=== PATIENT | female | born 1960 | race Caucasian/White ===

== ENCOUNTER 2020-06-09 17:34 | Observation (INO) | payer BC ==
--- NOTE | 2020-06-09 17:37 | EDM.PDOC ---
ED HPI GENERAL MEDICAL PROBLEM - General Chief Complaint: Neurological Problem Stated Complaint: ALTERED MENTAL STATUS Time Seen by Provider: 06/09/20 17:37 Source of Information: Reports: Patient, Family History Limitations: Reports: Altered Mental Status - History of Present Illness INITIAL COMMENTS - FREE TEXT/NARRATIVE: Ashanti, 60-year-old female, presents here with her for pedis with no physical deficit. Her provides history as roughly 1700 hrs. she experienced a significant loss of memory/recall. No trauma nor substance involvement is acknowledged. They had attended a wedding for a nephew in [facility] last evening spending the night, returning home today. At the time of onset they were moving vehicle into the garage when she asked where their vehicle was, as she did not remember/recognize they had obtained a new vehicle of similar size and brand roughly 2 weeks ago. She has no recall of yesterday's events. She had no recall of her current medications, but she was aware of an allergy to penicillin although unsure of what occurred stating it was something childhood. She had a negative COVID-19 test last week per review of [facility] record. There is been no recent illness or concerns, spent the majority of the time traveling from [place] back home to [place] reading a book with no complaints. She denies any change in vision, hearing, taste nor smell. She denies headache, denies numbness nor tingling to her head face or extremities. She has clear speech with no deficit. Totally benign occurrence other than the acute onset of memory loss, both short- term and some long-term factors. Onset: Today, Sudden Duration: Minutes: - Related Data Allergies Allergy/AdvReac Type Severity Reaction Status Date / Time Penicillins Allergy Cannot Verified 06/09/20 17:46 Remember Home Meds: Home Meds atorvaSTATin Calcium [Atorvastatin Calcium] 40 mg PO DAILY 06/09/20 [History] Past Medical History HEENT History: Reports: Impaired Vision (Uses contact lenses) Cardiovascular History: Reports: Hypertension Social & Family History - Family History Family Medical History: Noncontributory - Tobacco Use Tobacco Use Status *Q: Never Tobacco User Tobacco Use Within Last Twelve Months: No - Caffeine Use Caffeine Use: Reports: Soda. Denies: Energy Drinks - Alcohol Use Alcohol Use History: Yes Alcohol Use Frequency: Socially - Recreational Drug Use Recreational Drug Use: No Drug Use in Last 12 Months: No - Living Situation & Occupation Living situation: Reports: , with Spouse Occupation: Employed ED ROS GENERAL - Review of Systems Review Of Systems: Comprehensive ROS is negative, except as noted in HPI. ED EXAM, GENERAL - Physical Exam Exam: See Below Free Text/Narrative:: Alert 60-year-old female with some poor recall to both short-term and long-term memory. HEENT is negative discharge or deformity, there is no evidence of trauma. Auditory canals and tympanic membranes are intact. PERRLA no icterus, no injection, nondilated funduscopy reveals no nicking no scarring. Visual freire are intact with extraocular motion intact. Nilan Barany testing negative for any nystagmus. Facial symmetry is noted, she is able to speak with no difficulty and is able to maintain secretions and her airway. She is able to forcefully close her eyes open her eyes make facial expressions with no deficit. Thorax is clear throughout with no wheezes, no crackles. She is able to distinguish soft touch with cotton swab, pressure, as well as pinprick sensation to the face. Cardiac is S1-S2 with no noted murmur. Paper Folder strength is strong and symmetrical. She has no deficits nor drift to extension or motion. Finger to her nose to my finger is intact. Abdomen is soft bowel sounds are present there is no hepatosplenomegaly, no flank tenderness to percussion. Pelvic negative for tenderness to pressure of the girdle. Lower extremities are benign for any form of injury. No drift is noted. Heel martins is intact. Short-term/antrograde memory is absent with no other focal deficit in physical examination. Long-term/retrograde memory is impaired with no other focal deficit in physical examination. General Appearance: Alert, WD/WN, No Apparent Distress #1 Interpretation EKG Date: 06/09/20 Time: 18:24 Rhythm: NSR [place]: Normal P-Wave: Present QRS: Normal ST-T: Normal QT: Normal Comparison: NA - No Prior EKG Course - Vital Signs Last Recorded V/S: Last Vital Signs Temp 37.1 C 06/09/20 19:56 Pulse 105 H 06/09/20 19:56 Resp 20 06/09/20 19:56 BP 191/108 H 06/09/20 19:56 Pulse Ox 96 06/09/20 19:56 - Orders/Labs/Meds Orders: Active Orders 24 hr Category Date Time Status Blood Glucose Check, Bedside [RC] ONETIME Care 06/09/20 18:01 Active EKG Documentation Completion [RC] ASDIRECTED Care 06/09/20 17:58 Active CORONAVIRUS COVID-19 RAPID [MOLEC] Routine Lab 06/09/20 19:50 Received CORONAVIRUS COVID-19 RAPID [MOLEC] Stat Lab 06/09/20 20:07 Ordered CULTURE URINE [RM] Stat Lab 06/09/20 17:58 Received EKG 12 Lead [EK] Urgent Ther 06/09/20 17:58 Ordered Labs: Laboratory Tests 06/09/20 06/09/20 06/09/20 Range/Units 17:58 17:58 18:25 WBC (5.00-10.00) 10^3/uL RBC (3.80-5.50) 10^6/uL Hgb (12.0-16.0) g/dL Hct (37.0-47.0) % MCV (82.0-92.0) fL MCH (27.0-31.0) pg MCHC (32.0-36.0) g/dL RDW (11.5-14.5) % Plt Count (150-400) 10^3/uL MPV (7.4-10.4) fL Immature Gran % (Auto) (0.0-5.0) % Neut % (Auto) (50.0-70.0) % Lymph % (Auto) (20.0-40.0) % Ogle % (Auto) (2.0-8.0) % Eos % (Auto) (1.0-3.0) % Baso % (Auto) (0.0-1.0) % Neut # (Auto) (2.50-7.00) 10^3/uL Lymph # (Auto) (1.00-4.00) 10^3/uL Ogle # (Auto) (0.10-0.80) 10^3/uL Eos # (Auto) (0.10-0.30) 10^3/uL Baso # (Auto) (0.00-0.10) 10^3/uL Immature Gran # (Auto) (0.00-0.50) 10^3/uL PT 9.0 L (9.2-11.2) SEC INR 0.9 (0.9-1.1) APTT (22.8-31.4) SEC Sodium (136-145) mmol/L Potassium (3.3-5.3) mmol/L Chloride (98-115) mmol/L Carbon Dioxide (21.0-32.0) mmol/L Anion Gap (5-15) mmol/L BUN (6-25) mg/dL Creatinine (0.51-1.17) mg/dL Est Cr Clr Drug Dosing mL/min Estimated GFR (MDRD) mL/min Glucose (75 - 99) mg/dL Calcium (8.7-10.3) mg/dL Total Bilirubin (0.2-1.0) mg/dL AST (15-37) U/L ALT (12-78) U/L Alkaline Phosphatase (46-116) IU/L Creatine Kinase (26-276) U/L CK-MB (CK-2) (0.00-4.30) ng/mL Troponin I (0.00-0.070) ng/mL Total Protein (6.4-8.2) g/dL Albumin (3.00-4.80) g/dL Specimen Type Urincc Urine Color Light yellow (YELLOW) Urine Appearance Clear (CLEAR) Urine pH 6.0 (5.0-9.0) Ur Specific [place] 1.015 (1.005-1.030) Urine Protein Negative (NEGATIVE) mg/dL Urine Glucose (UA) Negative (NEGATIVE) mg/dL Urine Ketones Negative (NEGATIVE) mg/dL Urine Occult Blood Negative (NEGATIVE) Urine Nitrite Negative (NEGATIVE) Urine Bilirubin Negative (NEGATIVE) Urine Urobilinogen 0.2 (0.2-1.0) E.U./dL Ur Leukocyte Esterase Trace H (NEGATIVE) Urine RBC 0-5 (0-5) /HPF Urine WBC 0-5 (0-5) /HPF Ur Epithelial Cells Occasional /LPF Urine Bacteria Rare (NONE TO FEW) /HPF Urine Opiates Screen Negative (NEGATIVE) Ur Oxycodone Screen Negative (NEGATIVE) Urine Methadone Screen Negative (NEGATIVE) Ur Propoxyphene Screen Negative (NEGATIVE) Ur Barbiturates Screen Negative (NEGATIVE) Ur Tricyclics Screen Negative (NEGATIVE) Ur Phencyclidine Scrn Negative (NEGATIVE) Ur Amphetamine Screen Negative (NEGATIVE) U Methamphetamines Scrn Negative (NEGATIVE) U Benzodiazepines Scrn Negative (NEGATIVE) U Cocaine Metab Screen Negative (NEGATIVE) U Marijuana (THC) Screen Negative (NEGATIVE) 06/09/20 06/09/20 06/09/20 Range/Units 18:25 18:25 18:25 WBC 6.74 (5.00-10.00) 10^3/uL RBC 4.39 (3.80-5.50) 10^6/uL Hgb 12.7 (12.0-16.0) g/dL Hct 37.8 (37.0-47.0) % MCV 86.1 (82.0-92.0) fL MCH 28.9 (27.0-31.0) pg MCHC 33.6 (32.0-36.0) g/dL RDW 12.1 (11.5-14.5) % Plt Count 271 (150-400) 10^3/uL MPV 9.5 (7.4-10.4) fL Immature Gran % (Auto) 0.3 (0.0-5.0) % Neut % (Auto) 59.2 (50.0-70.0) % Lymph % (Auto) 29.5 (20.0-40.0) % Ogle % (Auto) 7.9 (2.0-8.0) % Eos % (Auto) 2.1 (1.0-3.0) % Baso % (Auto) 1.0 (0.0-1.0) % Neut # (Auto) 3.99 (2.50-7.00) 10^3/uL Lymph # (Auto) 1.99 (1.00-4.00) 10^3/uL Ogle # (Auto) 0.53 (0.10-0.80) 10^3/uL Eos # (Auto) 0.14 (0.10-0.30) 10^3/uL Baso # (Auto) 0.07 (0.00-0.10) 10^3/uL Immature Gran # (Auto) 0.02 (0.00-0.50) 10^3/uL PT (9.2-11.2) SEC INR (0.9-1.1) APTT 23.4 (22.8-31.4) SEC Sodium 136 (136-145) mmol/L Potassium 3.4 (3.3-5.3) mmol/L Chloride 101 (98-115) mmol/L Carbon Dioxide 25.2 (21.0-32.0) mmol/L Anion Gap 13.2 (5-15) mmol/L BUN 9 (6-25) mg/dL Creatinine 0.77 (0.51-1.17) mg/dL Est Cr Clr Drug Dosing 62.99 mL/min Estimated GFR (MDRD) > 60 mL/min Glucose 131 H (75 - 99) mg/dL Calcium 9.0 (8.7-10.3) mg/dL Total Bilirubin 0.3 (0.2-1.0) mg/dL AST 16 (15-37) U/L ALT 26 (12-78) U/L Alkaline Phosphatase 89 (46-116) IU/L Creatine Kinase 98 (26-276) U/L CK-MB (CK-2) 0.50 (0.00-4.30) ng/mL Troponin I 0.06 (0.00-0.070) ng/mL Total Protein 7.8 (6.4-8.2) g/dL Albumin 4.34 (3.00-4.80) g/dL Specimen Type Urine Color (YELLOW) Urine Appearance (CLEAR) Urine pH (5.0-9.0) Ur Specific [place] (1.005-1.030) Urine Protein (NEGATIVE) mg/dL Urine Glucose (UA) (NEGATIVE) mg/dL Urine Ketones (NEGATIVE) mg/dL Urine Occult Blood (NEGATIVE) Urine Nitrite (NEGATIVE) Urine Bilirubin (NEGATIVE) Urine Urobilinogen (0.2-1.0) E.U./dL Ur Leukocyte Esterase (NEGATIVE) Urine RBC (0-5) /HPF Urine WBC (0-5) /HPF Ur Epithelial Cells /LPF Urine Bacteria (NONE TO FEW) /HPF Urine Opiates Screen (NEGATIVE) Ur Oxycodone Screen (NEGATIVE) Urine Methadone Screen (NEGATIVE) Ur Propoxyphene Screen (NEGATIVE) Ur Barbiturates Screen (NEGATIVE) Ur Tricyclics Screen (NEGATIVE) Ur Phencyclidine Scrn (NEGATIVE) Ur Amphetamine Screen (NEGATIVE) U Methamphetamines Scrn (NEGATIVE) U Benzodiazepines Scrn (NEGATIVE) U Cocaine Metab Screen (NEGATIVE) U Marijuana (THC) Screen (NEGATIVE) - Re-Assessments/Exams Free Text/Narrative Re-Assessment/Exam: 06/09/20 18:36 I returned to bedside at this time to explain that her EKG and chest x-ray appeared within normal limits and that we were awaiting blood testing and CT report. I asked Ashanti if she remembered my name to which she replied she did not. She then stated that she had never seen me before that she remembered. I reasked the question if I had ever been in the room with her before to which she acknowledged not that she could remember. Free Text/Narrative Re-Assessment/Exam: 06/09/20 19:52 Phone call placed to [place] [address] Clark neurology. Described onset symptoms and vitals with his opinion after review of CT transient global amnesia. Recommends admission and observation for the next 24 hours. Antihypertensive treatment with no specific restrictions as to bringing back down into normal limits. MRI follow-up would be recommended if not having complete resolution in a 24- hour period. Departure - Departure Time of Disposition: 20:18 Disposition: Refer to Observation Condition: Good Clinical Impression: Transient global amnesia, Amnesia - Discharge Information *PRESCRIPTION DRUG MONITORING PROGRAM REVIEWED*: Not Applicable *COPY OF PRESCRIPTION DRUG MONITORING REPORT IN PATIENT NAHUM: Not Applicable Referrals: Myra Maya PA-C [Primary Care Provider] - Forms: ED Department Discharge Additional Instructions: After discussion with Dr. Clark and neurology at [facility], recommendations for observation over the next 24 hours. Graham Wilson contacted agrees to admission observation status and will place orders once Covid screen is cleared for admission process. Sepsis Event Note (ED) - Focused Exam Vital Signs: Vital Signs Temp Pulse Resp BP Pulse Ox 06/09/20 19:56 37.1 C 105 H 20 191/108 H 96 06/09/20 19:21 37.4 C 110 H 20 186/103 H 96 06/09/20 18:33 118 H 20 164/105 H 95 06/09/20 17:41 36.7 C 122 H 20 169/100 H 96 ED Communication - ED Communication Date/Time Date: 06/09/20 Time Called: 20:58 - Discussed Case With (1) Discussed Case With (1): Admitting Provider Person/s Notified (1): Graham Wilson - Problem List & Annotations (1) Amnesia SNOMED Code(s): 86047906 Code(s): R41.3 - OTHER AMNESIA Status: Acute Priority: High Current Visit: Yes (2) Transient global amnesia SNOMED Code(s): 658143781 Code(s): G45.4 - TRANSIENT GLOBAL AMNESIA Status: Acute Priority: High Current Visit: Yes (3) Hypertension SNOMED Code(s): 66630638 Code(s): I10 - ESSENTIAL (PRIMARY) HYPERTENSION Status: Acute Priority: High Current Visit: Yes Qualifiers: Hypertension type: unspecified Qualified Code(s): I10 - Essential (primary) hypertension - Problem List Review Problem List Initiated/Reviewed/Updated: Yes - My Orders Last 24 Hours: My Active Orders 06/09/20 17:58 EKG Documentation Completion [RC] ASDIRECTED CULTURE URINE [RM] Stat EKG 12 Lead [EK] Urgent 06/09/20 18:01 Blood Glucose Check, Bedside [RC] ONETIME 06/09/20 19:50 CORONAVIRUS COVID-19 RAPID [MOLEC] Routine 06/09/20 20:07 CORONAVIRUS COVID-19 RAPID [MOLEC] Stat - Assessment/Plan Last 24 Hours: My Active Orders 06/09/20 17:58 EKG Documentation Completion [RC] ASDIRECTED CULTURE URINE [RM] Stat EKG 12 Lead [EK] Urgent 06/09/20 18:01 Blood Glucose Check, Bedside [RC] ONETIME 06/09/20 19:50 CORONAVIRUS COVID-19 RAPID [MOLEC] Routine 06/09/20 20:07 CORONAVIRUS COVID-19 RAPID [MOLEC] Stat Plan: After discussion with Dr. Clark and neurology at [facility], recommendations for observation over the next 24 hours. Graham Wilson contacted agrees to admission observation status and will place orders once Covid screen is cleared for admission process.
--- NOTE | 2020-06-09 18:51 | CT ---
[id number] CT/CT Head WO IV EXAM: CT Head WO IV CLINICAL DATA: AMNESIA, SUDDEN ONSET. COMPARISON STUDY: None FINDINGS: No intracranial hemorrhage, extra-axial fluid collection, mass, or acute ischemia. Generalized parenchymal atrophy with scattered areas of nonspecific white matter disease, commonly seen as sequela of chronic microvascular ischemia. Soft tissues are unremarkable. Paranasal sinuses and mastoid air cells are clear. IMPRESSION: No acute intracranial findings. Ravindra Brennan DO 06/09/20 1857 Thank you for allowing us to participate in the care of your patient.
[2020-06-09 18:52] LABS: BARBITURATE SCREEN,URINE NEGATIVE (NEGATIVE); BENZODIAZEPINES SCREEN,URINE NEGATIVE (NEGATIVE); TCA SCREEN,URINE NEGATIVE (NEGATIVE); THC SCREEN,URINE 50 NG/ML NEGATIVE (NEGATIVE)
--- NOTE | 2020-06-09 18:53 | CR ---
[id number] RAD/RAD Chest PA And Lateral EXAM: RAD Chest PA And Lateral INDICATION: AMNESIA, SUDDEN ONSET. COMPARISON: June 09, 2020. DISCUSSION: Cardiomediastinal silhouette is normal in size and contour. No infiltrate, effusion, pneumothorax, or edema. IMPRESSION: No acute cardiopulmonary abnormality. Ravindra Brennan DO 06/09/20 1852 Thank you for allowing us to participate in the care of your patient.
[2020-06-09 19:01] LABS: ANION GAP 13.2 mmol/L (5-15); CHLORIDE,CL 101 mmol/L (98-115); SODIUM,NA 136 mmol/L (136-145)
[2020-06-09] MEDS ORDERED: Sodium Chloride 0.9% 10 ML Syringe FLUSH PRN (20:15)
[2020-06-09] MEDS ORDERED: Metoprolol Succinate 25 MG Tab.ER PO ONE (21:49)
[2020-06-09] MEDS ORDERED: Acetaminophen 325 MG Tab PO PRN (22:46)
--- NOTE | 2020-06-10 11:25 | PCM.HP.2 ---
H&P History of Present Illness - General Date of Service: 06/10/20 Admit Problem/Dx: Admission Diagnosis/Problem Admission Diagnosis/Problem Global amnesia Source of Information: Patient, Old Records, Provider, RN History Limitations: Reports: No Limitations - Related Data Allergies/Adverse Reactions: Allergies Allergy/AdvReac Type Severity Reaction Status Date / Time Penicillins Allergy Cannot Verified 06/09/20 17:46 Remember Home Medications: Home Meds atorvaSTATin Calcium [Atorvastatin Calcium] 40 mg PO DAILY 06/09/20 [History] Past Medical History HEENT History: Reports: Impaired Vision Cardiovascular History: Reports: Hypertension Respiratory History: Reports: None Gastrointestinal History: Reports: None Genitourinary History: Reports: None [employer] History: Reports: None Musculoskeletal History: Reports: None Neurological History: Reports: None Psychiatric History: Reports: None Endocrine/Metabolic History: Reports: None Hematologic History: Reports: None Immunologic History: Reports: None Oncologic (Cancer) History: Reports: None Dermatologic History: Reports: None - Infectious Disease History Infectious Disease History: Reports: Chicken Pox, Mumps - Past Surgical History HEENT Surgical History: Reports: None Cardiovascular Surgical History: Reports: None Respiratory Surgical History: Reports: None GI Surgical History: Reports: None Female Surgical History: Reports: None Endocrine Surgical History: Reports: None Neurological Surgical History: Reports: None Musculoskeletal Surgical History: Reports: None Oncologic Surgical History: Reports: None Dermatological Surgical History: Reports: None Social & Family History - Family History Family Medical History: Noncontributory - Tobacco Use Tobacco Use Status *Q: Never Tobacco User Second Hand Smoke Exposure: No - Caffeine Use Caffeine Use: Reports: Soda - Alcohol Use Days Per Week of Alcohol Use: 2 Number of Drinks Per Day: 5 Total Drinks Per Week: 10 - Recreational Drug Use Recreational Drug Use: No Drug Use in Last 12 Months: No - Living Situation & Occupation Living situation: Reports: , with Spouse Occupation: Employed H&P Review of Systems - Review of Systems: Review Of Systems: See Below General: Reports: No Symptoms HEENT: Reports: No Symptoms Pulmonary: Reports: Cough (Improving cough) Cardiovascular: Reports: No Symptoms, Blood Pressure Problem Gastrointestinal: Reports: No Symptoms Genitourinary: Reports: No Symptoms Musculoskeletal: Reports: No Symptoms Skin: Reports: No Symptoms Psychiatric: Reports: Other (Improving memory). Denies: Agitation Neurological: Reports: No Symptoms (Improving memory) Exam - Exam Exam: See Below - Vital Signs Vital Signs: Last Vital Signs Temp 97.7 F 06/10/20 06:24 Pulse 83 06/10/20 06:24 Resp 16 06/10/20 06:24 BP 137/92 H 06/10/20 06:24 Pulse Ox 96 06/10/20 06:24 Weight: 182 lb 1.6 oz - Exam General: Alert, Oriented, Cooperative HEENT: PERRLA, Hearing Intact, Mucosa Moist & Tomas De Castro, Nares Patent, Normal Nasal Septum, Posterior Pharynx Clear, Conjunctiva Clear, EOMI, EACs Clear, TMs Clear Neck: Supple, Trachea Midline, 2 Lungs: Clear to Auscultation, Normal Respiratory Effort Cardiovascular: Regular Rate, Regular Rhythm (Female) Exam: Deferred Back Exam: No: CVA Tenderness (L), CVA Tenderness (R) Extremities: No Pedal Edema Peripheral Pulses: 2+: Radial (L), Radial (R) Neurological: Cranial Nerves Intact, Reflexes Equal Bilateral Neuro Extensive - Mental Status: Alert, Oriented x3, Normal Mood/Affect, Normal Cognition, Memory Intact (Semantic memory intact, close to baseline) Neuro Extensive - Motor, Sensory, Reflexes: No: Abnormal Reflexes, Tongue Deviation (L), Tongue Deviation (R), Facial Palsy (R), Pronator Drift (R), Pronator Drift (L), Abnormal Sensation, Abnormal Motor Psychiatric: Alert, Normal Affect, Normal Mood - Patient Data Lab Results Last 24 hrs: Laboratory Results - last 24 hr 06/09/20 06/09/20 06/09/20 Range/Units 17:58 17:58 18:25 WBC (5.00-10.00) 10^3/uL RBC (3.80-5.50) 10^6/uL Hgb (12.0-16.0) g/dL Hct (37.0-47.0) % MCV (82.0-92.0) fL MCH (27.0-31.0) pg MCHC (32.0-36.0) g/dL RDW (11.5-14.5) % Plt Count (150-400) 10^3/uL MPV (7.4-10.4) fL Immature Gran % (Auto) (0.0-5.0) % Neut % (Auto) (50.0-70.0) % Lymph % (Auto) (20.0-40.0) % Blount % (Auto) (2.0-8.0) % Eos % (Auto) (1.0-3.0) % Baso % (Auto) (0.0-1.0) % Neut # (Auto) (2.50-7.00) 10^3/uL Lymph # (Auto) (1.00-4.00) 10^3/uL Blount # (Auto) (0.10-0.80) 10^3/uL Eos # (Auto) (0.10-0.30) 10^3/uL Baso # (Auto) (0.00-0.10) 10^3/uL Immature Gran # (Auto) (0.00-0.50) 10^3/uL PT 9.0 L (9.2-11.2) SEC INR 0.9 (0.9-1.1) APTT (22.8-31.4) SEC Sodium (136-145) mmol/L Potassium (3.3-5.3) mmol/L Chloride (98-115) mmol/L Carbon Dioxide (21.0-32.0) mmol/L Anion Gap (5-15) mmol/L BUN (6-25) mg/dL Creatinine (0.51-1.17) mg/dL Est Cr Clr Drug Dosing mL/min Estimated GFR (MDRD) mL/min Glucose (75 - 99) mg/dL Calcium (8.7-10.3) mg/dL Total Bilirubin (0.2-1.0) mg/dL AST (15-37) U/L ALT (12-78) U/L Alkaline Phosphatase (46-116) IU/L Creatine Kinase (26-276) U/L CK-MB (CK-2) (0.00-4.30) ng/mL Troponin I (0.00-0.070) ng/mL Total Protein (6.4-8.2) g/dL Albumin (3.00-4.80) g/dL Specimen Type Urincc Urine Color Light yellow (YELLOW) Urine Appearance Clear (CLEAR) Urine pH 6.0 (5.0-9.0) Ur Specific [place] 1.015 (1.005-1.030) Urine Protein Negative (NEGATIVE) mg/dL Urine Glucose (UA) Negative (NEGATIVE) mg/dL Urine Ketones Negative (NEGATIVE) mg/dL Urine Occult Blood Negative (NEGATIVE) Urine Nitrite Negative (NEGATIVE) Urine Bilirubin Negative (NEGATIVE) Urine Urobilinogen 0.2 (0.2-1.0) E.U./dL Ur Leukocyte Esterase Trace H (NEGATIVE) Urine RBC 0-5 (0-5) /HPF Urine WBC 0-5 (0-5) /HPF Ur Epithelial Cells Occasional /LPF Urine Bacteria Rare (NONE TO FEW) /HPF Urine Opiates Screen Negative (NEGATIVE) Ur Oxycodone Screen Negative (NEGATIVE) Urine Methadone Screen Negative (NEGATIVE) Ur Propoxyphene Screen Negative (NEGATIVE) Ur Barbiturates Screen Negative (NEGATIVE) Ur Tricyclics Screen Negative (NEGATIVE) Ur Phencyclidine Scrn Negative (NEGATIVE) Ur Amphetamine Screen Negative (NEGATIVE) U Methamphetamines Scrn Negative (NEGATIVE) U Benzodiazepines Scrn Negative (NEGATIVE) U Cocaine Metab Screen Negative (NEGATIVE) U Marijuana (THC) Screen Negative (NEGATIVE) SARS CoV-2 RNA Rapid MUNIRA (NEGATIVE) 06/09/20 06/09/20 06/09/20 Range/Units 18:25 18:25 18:25 WBC 6.74 (5.00-10.00) 10^3/uL RBC 4.39 (3.80-5.50) 10^6/uL Hgb 12.7 (12.0-16.0) g/dL Hct 37.8 (37.0-47.0) % MCV 86.1 (82.0-92.0) fL MCH 28.9 (27.0-31.0) pg MCHC 33.6 (32.0-36.0) g/dL RDW 12.1 (11.5-14.5) % Plt Count 271 (150-400) 10^3/uL MPV 9.5 (7.4-10.4) fL Immature Gran % (Auto) 0.3 (0.0-5.0) % Neut % (Auto) 59.2 (50.0-70.0) % Lymph % (Auto) 29.5 (20.0-40.0) % Blount % (Auto) 7.9 (2.0-8.0) % Eos % (Auto) 2.1 (1.0-3.0) % Baso % (Auto) 1.0 (0.0-1.0) % Neut # (Auto) 3.99 (2.50-7.00) 10^3/uL Lymph # (Auto) 1.99 (1.00-4.00) 10^3/uL Blount # (Auto) 0.53 (0.10-0.80) 10^3/uL Eos # (Auto) 0.14 (0.10-0.30) 10^3/uL Baso # (Auto) 0.07 (0.00-0.10) 10^3/uL Immature Gran # (Auto) 0.02 (0.00-0.50) 10^3/uL PT (9.2-11.2) SEC INR (0.9-1.1) APTT 23.4 (22.8-31.4) SEC Sodium 136 (136-145) mmol/L Potassium 3.4 (3.3-5.3) mmol/L Chloride 101 (98-115) mmol/L Carbon Dioxide 25.2 (21.0-32.0) mmol/L Anion Gap 13.2 (5-15) mmol/L BUN 9 (6-25) mg/dL Creatinine 0.77 (0.51-1.17) mg/dL Est Cr Clr Drug Dosing 62.99 mL/min Estimated GFR (MDRD) > 60 mL/min Glucose 131 H (75 - 99) mg/dL Calcium 9.0 (8.7-10.3) mg/dL Total Bilirubin 0.3 (0.2-1.0) mg/dL AST 16 (15-37) U/L ALT 26 (12-78) U/L Alkaline Phosphatase 89 (46-116) IU/L Creatine Kinase 98 (26-276) U/L CK-MB (CK-2) 0.50 (0.00-4.30) ng/mL Troponin I 0.06 (0.00-0.070) ng/mL Total Protein 7.8 (6.4-8.2) g/dL Albumin 4.34 (3.00-4.80) g/dL Specimen Type Urine Color (YELLOW) Urine Appearance (CLEAR) Urine pH (5.0-9.0) Ur Specific [place] (1.005-1.030) Urine Protein (NEGATIVE) mg/dL Urine Glucose (UA) (NEGATIVE) mg/dL Urine Ketones (NEGATIVE) mg/dL Urine Occult Blood (NEGATIVE) Urine Nitrite (NEGATIVE) Urine Bilirubin (NEGATIVE) Urine Urobilinogen (0.2-1.0) E.U./dL Ur Leukocyte Esterase (NEGATIVE) Urine RBC (0-5) /HPF Urine WBC (0-5) /HPF Ur Epithelial Cells /LPF Urine Bacteria (NONE TO FEW) /HPF Urine Opiates Screen (NEGATIVE) Ur Oxycodone Screen (NEGATIVE) Urine Methadone Screen (NEGATIVE) Ur Propoxyphene Screen (NEGATIVE) Ur Barbiturates Screen (NEGATIVE) Ur Tricyclics Screen (NEGATIVE) Ur Phencyclidine Scrn (NEGATIVE) Ur Amphetamine Screen (NEGATIVE) U Methamphetamines Scrn (NEGATIVE) U Benzodiazepines Scrn (NEGATIVE) U Cocaine Metab Screen (NEGATIVE) U Marijuana (THC) Screen (NEGATIVE) SARS CoV-2 RNA Rapid MUNIRA (NEGATIVE) 06/09/20 Range/Units 19:50 WBC (5.00-10.00) 10^3/uL RBC (3.80-5.50) 10^6/uL Hgb (12.0-16.0) g/dL Hct (37.0-47.0) % MCV (82.0-92.0) fL MCH (27.0-31.0) pg MCHC (32.0-36.0) g/dL RDW (11.5-14.5) % Plt Count (150-400) 10^3/uL MPV (7.4-10.4) fL Immature Gran % (Auto) (0.0-5.0) % Neut % (Auto) (50.0-70.0) % Lymph % (Auto) (20.0-40.0) % Blount % (Auto) (2.0-8.0) % Eos % (Auto) (1.0-3.0) % Baso % (Auto) (0.0-1.0) % Neut # (Auto) (2.50-7.00) 10^3/uL Lymph # (Auto) (1.00-4.00) 10^3/uL [place]ount # (Auto) (0.10-0.80) 10^3/uL Eos # (Auto) (0.10-0.30) 10^3/uL Baso # (Auto) (0.00-0.10) 10^3/uL Immature Gran # (Auto) (0.00-0.50) 10^3/uL PT (9.2-11.2) SEC INR (0.9-1.1) APTT (22.8-31.4) SEC Sodium (136-145) mmol/L Potassium (3.3-5.3) mmol/L Chloride (98-115) mmol/L Carbon Dioxide (21.0-32.0) mmol/L Anion Gap (5-15) mmol/L BUN (6-25) mg/dL Creatinine (0.51-1.17) mg/dL Est Cr Clr Drug Dosing mL/min Estimated GFR (MDRD) mL/min Glucose (75 - 99) mg/dL Calcium (8.7-10.3) mg/dL Total Bilirubin (0.2-1.0) mg/dL AST (15-37) U/L ALT (12-78) U/L Alkaline Phosphatase (46-116) IU/L Creatine Kinase (26-276) U/L CK-MB (CK-2) (0.00-4.30) ng/mL Troponin I (0.00-0.070) ng/mL Total Protein (6.4-8.2) g/dL Albumin (3.00-4.80) g/dL Specimen Type Urine Color (YELLOW) Urine Appearance (CLEAR) Urine pH (5.0-9.0) Ur Specific [place] (1.005-1.030) Urine Protein (NEGATIVE) mg/dL Urine Glucose (UA) (NEGATIVE) mg/dL Urine Ketones (NEGATIVE) mg/dL Urine Occult Blood (NEGATIVE) Urine Nitrite (NEGATIVE) Urine Bilirubin (NEGATIVE) Urine Urobilinogen (0.2-1.0) E.U./dL Ur Leukocyte Esterase (NEGATIVE) Urine RBC (0-5) /HPF Urine WBC (0-5) /HPF Ur Epithelial Cells /LPF Urine Bacteria (NONE TO FEW) /HPF Urine Opiates Screen (NEGATIVE) Ur Oxycodone Screen (NEGATIVE) Urine Methadone Screen (NEGATIVE) Ur Propoxyphene Screen (NEGATIVE) Ur Barbiturates Screen (NEGATIVE) Ur Tricyclics Screen (NEGATIVE) Ur Phencyclidine Scrn (NEGATIVE) Ur Amphetamine Screen (NEGATIVE) U Methamphetamines Scrn (NEGATIVE) U Benzodiazepines Scrn (NEGATIVE) U Cocaine Metab Screen (NEGATIVE) U Marijuana (THC) Screen (NEGATIVE) SARS CoV-2 RNA Rapid MUNIRA Negative (NEGATIVE) Result Diagrams: 06/09/20 18:25 06/09/20 18:25 Sepsis Event Note - Evaluation Sepsis Screening Result: No Definite Risk - Focused Exam Vital Signs: Vital Signs Temp Pulse Resp BP Pulse Ox 06/10/20 06:24 97.7 F 83 16 137/92 H 96 06/10/20 02:01 98.4 F 86 16 144/83 H 96 Problem List Initiated/Reviewed/Updated: Yes Orders Last 24hrs: Active Orders 24 hr Category Date Time Status Patient Status [ADT] Routine ADT 06/09/20 20:14 Active Neuro Check [RC] 03,07,11,15,19,23 Care 06/09/20 21:50 Active Peripheral IV Care [RC] ,21 Care 06/09/20 20:15 Active Ready for Discharge [RC] PER UNIT ROUTINE Care 06/10/20 11:03 Ordered Regular Diet [DIET] Diet 06/10/20 Breakfast Active CULTURE URINE [RM] Stat Lab 06/09/20 17:58 Received Acetaminophen [TylenoL] Med 06/09/20 22:46 Active 650 mg PO Q4H PRN Sodium Chloride 0.9% [Saline Flush] Med 06/09/20 20:15 Active 10 ml FLUSH Q8HR PRN Peripheral IV Insertion Adult [OM.PC] Routine Oth 06/09/20 20:15 Ordered Resuscitation Status Routine Resus Stat 06/09/20 21:50 Ordered EKG 12 Lead [EK] Urgent Ther 06/09/20 17:58 Stop Req Medication Orders Acetaminophen (Tylenol) 650 mg PO Q4H PRN PRN Reason: Pain Sodium Chloride (Saline Flush) 10 ml FLUSH Q8HR PRN PRN Reason: keep vein open Last Admin: 06/09/20 22:24 Dose: 10 ml Documented by: LISA Assessment/Plan Comment:: Please use H&P as a combined discharge summary as I evaluated the patient the same day of discharge History of present illness 60-year-old female was admitted last night into observation status due to acute memory loss. She was evaluated in the ED and was accompanied by her spouse who gave a history of her having loss of memory not recall she was at a thing or the type of car they drove. Her spouse denotes richmond had attended a wedding for a nephew in [facility] evening prior spending the night, returning home day of admission. At the time of onset they were moving vehicle into the garage when she asked where their vehicle was, as she did not remember/recognize they had obtained a new vehicle of similar size and brand ~2 weeks. Also had no recall of the day prior. She denies any change in vision, hearing, taste nor smell. She denies headache, denies numbness nor tingling to her head face or extremities. She has clear speech with no deficit. Does have a history of hyperlipidemia. No trauma nor substance involvement is acknowledged. Recovering URI with lingering cough Pertinent ED findings/work-up CT head, although no acute intracranial findings, chronic microvascular ischemia and generalized atrophy Chest x-ray, negative negative COVID-19 HR 122, BP 169/100 Urine drug screen, negative CBC, UA, electrolytes non-concerning Hospital course Patient had an uneventful [facility] hospital course, this author did administer one- time dose of metoprolol succinate the after arrival to the floor due to significant hypertension. Neurochecks were all normal, patient started to have significant recollection of events throughout the night and very close to baseline upon discharge. Blood pressure improved however not optimal on discharge at 137/92 however improved heart rate of 83. Upon discharge I stressed to the patient regarding lifestyle modifications and will need to be seen at the [facility], ensure adequate blood control, lipid control diet and exercise. She will see neurology at some point referral placed. I felt she was deemed stable to be discharged with specific discharge instructions to monitor Medication changes/adjustments upon discharge Metoprolol succinate 25 mg p.o. daily, (newly added on this admission) sent via [employer] Continue with atorvastatin 40 mg daily Referrals/consultations/pending diagnostics --Neurology referral placed through [facility] on discharge --MRI brain ordered through [facility] (clinic RN to perform MRI screen at f/u) - Mortality Measure Prognosis:: Good
[2020-06-10] MEDS ORDERED: Metoprolol Succinate 25 MG Tab.ER PO ONE (11:27)
== END 2020-06-10 12:00 | disposition home or self-care (01) ==
LOC: KA.ED 17:34 → KA.MS 20:14
PROVIDERS: ADMIT Family Medicine; ATTEND Nurse Practitioner Family
DX: G45.4 Transient global amnesia (principal); I10 Essential (primary) hypertension; Z20.828 Contact with and (suspected) exposure to other viral communicable diseases; Z88.0 Allergy status to penicillin; Z79.899 Other long term (current) drug therapy
CPT/HCPCS: 36415; 70450; 71046; 80053; 80305; 81001; 82550; 82553; 84484; 85025; 85610; 85730; 87086; 87635; 93005; 99285; A9270 ×2; G0378 ×3; 82962; 99284; U0002